=== PATIENT | male | born 1990 | race Caucasian/White ===

== ENCOUNTER 2025-01-05 23:19 | Emergency (ER) | payer OTHER, SELFPAY ==
[2025-01-05 23:28] VITALS: BP 116/74; PULSE 76; TEMP 37.1; O2SAT 96; BMI 28.8
--- NOTE | 2025-01-05 23:53 | ECG_ITS ---
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 Measurements Intervals [place] Rate: 57 P: 5 MN: 172 QRS: 75 QRSD: 92 T: 2 QT: 374 QTc: 368 Interpretive Statements 1100 Sinus rhythm 4068 Nonspecific [place] abnormality 9130 borderline ECG No previous ECG available for comparison Electronically Signed On 01-06-2025 20:12:04 EDT by LIZETH DEMPSEY M.D.
[2025-01-06 00:45] LABS: Basophils Absolute Auto 0.1 10^3/uL (0.0-0.1); Basophils Percent Auto 0.5 % (0.2-2.0); Eosinophils Absolute Auto 0.2 10^3/uL (0.0-0.7); Eosinophils Percent Auto 1.6 % (0.9-7.0); Hematocrit 42.9 % (42.0-54.0); Hemoglobin 14.7 g/dL (14.0-18.0); Immature Granulocytes Abs Auto 0.02 10^3/uL (0.00-0.03); Immature Granulocytes Pct Auto 0.2 % (0.0-0.5); Lymphocytes Absolute Auto 2.5 10^3/uL (1.2-3.8); Lymphocytes Percent Auto 26.1 % (20.5-60.0); Mean Corpuscular HGB Conc 34.3 g/dL (29.9-35.2); Mean Corpuscular Hemoglobin 30.2 pg (25.9-34.0); Mean Corpuscular Volume 88.1 fL (80.0-94.0); Mean Platelet Volume 9.7 fL (9.5-13.5); Monocytes Absolute Auto 0.7 10^3/uL (0.3-0.8); Neutrophils Absolute Auto 6.2 10^3/uL (1.4-6.5); Neutrophils Percent Auto 64.6 % (43.0-75.0); Platelet Count 273 10^3/uL (150-450); Red Blood Count 4.87 10^6/uL (4.70-6.10); Red Cell Distribution Width 12.1 % (11.0-15.0); White Blood Count 9.6 10^3/uL (4.0-11.0)
[2025-01-06 01:00] LABS: Alanine Aminotransferase 23 U/L (16-63); Albumin Globulin Ratio 0.9; Albumin Level 3.5 g/dL (3.4-5.0); Alkaline Phosphatase 49 U/L (46-116); Anion Gap 13.5; Aspartate Amino Transferase 16 U/L (15-37); BUN Creatinine Ratio 12.4; Bilirubin Total 0.5 mg/dL (0.2-1.0); Calcium 9.1 mg/dL (8.5-10.1); Carbon Dioxide 26.3 mmol/L (21.0-32.0); Chloride 103 mmol/L (98-107); Estimated GFR (African America >60 (>=60 mL/min/1.73m^2); Estimated GFR (Non-African Ame >60 (>=60 mL/min/1.73m^2); Globulin 3.7 g/dL; Glucose 102 mg/dL (74-106); Potassium 3.8 mmol/L (3.5-5.1); Salicylate <2.8 mg/dL (<=19.9); Sodium 139 mmol/L (136-145); Total Protein 7.2 g/dL (6.4-8.2)
--- NOTE | 2025-01-06 01:01 | ED_ITS ---
HPI - Psych General Chief Complaint: Psychiatric Symptoms Stated Complaint: MENTAL HEALTH ISSUE Time Seen by Provider: 01/05/25 23:42 Mode of arrival: walk-in History of Present Illness HPI Narrative: This 34-year-old male with a history of depression and anxiety with history of suicidal ideation and suicide attempts in the past who is on several psychiatric medications is brought to the emergency department by his sister. For the past 2 to 3 weeks the patient has been having increased episodes of suicidal ideation with self isolation and planning . The patient is originally from [place]. In the past he had a suicide attempt in which he jumped from a high building causing him to have a pelvic fracture and multiple other injuries. The patient states the symptoms have been present since August after Trump was elected. The patient states that since that time he has been having increasing depression and anxiety. 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 He does not verbalize an exact plan to me. He states that he feels that his family is his biggest support structure and since the election his family is split and he does not feel the support from them that he has felt in the past. Related Data Allergies Allergy/AdvReac Type Severity Reaction Status Date / Time codeine Allergy Mild itching Verified 01/05/25 23:33 Review of Systems ROS Status of ROS 10 or more systems reviewed and unremark able except as noted in history and below PFSH PFSH Social History Little interest or pleasure in doing things: several days Feeling down, depressed, or hopeless: several days Exam Narrative Exam Narrative: Vital signs and Nursing Notes reviewed: Patient is afebrile with a normal pulse, normal blood pressure, he is not hypoxic with pulse ox of 96% on room air General: Awake, alert, oriented, flat, depressed affect, somewhat tearful at times, no respiratory distress HEENT: Normocephalic atraumatic, mucous membranes are moist and pink, eyes are clear, normal conjunctiva, vision is grossly intact, posterior pharynx is normal in appearance. Chest: Lungs are clear to auscultation with good air entry, there is no wheezing rhonchi or rales appreciated no accessory muscle use, patient is speaking in complete sentences-no chest wall tenderness to palpation CVS: Regular rate and rhythm S1-S2, no murmurs rubs or gallops, pulses are brisk and equal bilaterally ABD: Soft, nondistended, nontender, no rebound guarding or rigidity, bowel sounds are normal, no pulsatile masses appreciated Extremities: Moving all extremities, no lower extremity tenderness or swelling noted, negative Homans' sign, pulses are brisk and equal bilaterally Skin: Normal in appearance without rash,pallor, petechiae or purpura-multiple tattoos Neuro: No focal deficits Psych: Ongoing depression, anxiety with suicidal ideation, increased sleeping and decreased appetite Constitutional Vital Signs, click to edit/add: Last Vital Signs Temp 98.7 F 01/05/25 23:28 Pulse 76 01/05/25 23:28 Resp 18 01/05/25 23:28 BP 116/74 01/05/25 23:28 Pulse Ox 96 01/05/25 23:28 O2 Del Method Room Air 01/05/25 23:28 Course Vital Signs Vital signs: Vital Signs Temperature 98.7 F 01/05/25 23:28 Pulse Rate 76 01/05/25 23:28 Respiratory Rate 18 01/05/25 23:28 Blood Pressure 116/74 01/05/25 23:28 Pulse Oximetry 96 01/05/25 23:28 Oxygen Delivery Method Room Air 01/05/25 23:28 Temperature 98.7 F 01/05/25 23:28 Pulse Rate 76 01/05/25 23:28 Respiratory Rate 18 01/05/25 23:28 Blood Pressure 116/74 01/05/25 23:28 Pulse Oximetry 96 01/05/25 23:28 Oxygen Delivery Method Room Air 01/05/25 23:28 MDM - Psych MDM Narrative Medical decision making narrative: This 34-year-old male with a history of depression and anxiety is brought to emergency department by his sister for evaluation of increasing symptoms of depression and anxiety as well as suicidal ideation that has been increasing for the past several weeks. He does have a history of suicidal attempt in the past when he jumped off a tall building and was severely injured. He is currently under the treatment of a psychiatrist that he was seeing before moving to [place] from [place] and a local therapist. He maintains medication compliance. Despite this he is having increased suicidal ideation. He has not verbalize an actual plan to me. He is otherwise forthcoming. He was seen and evaluated by P. Medical clearance was ordered. He has a normal EKG. He has a normal white count and hemoglobin. Electrolytes are normal. He is negative for aspirin, Tylenol and alcohol. Drug tox is pending at this time. He has been accepted for transfer to [address] Urine tox is positive for marijuana and benzodiazepines. He has remained is calm, cooperative and stable while in the emergency department and is agreeable to voluntary admission to [facility]. Lab Data Attestation: I reviewed the patient's lab results. Labs: Lab Results 01/06/25 01/06/25 Range/Units 00:38 03:10 WBC 9.6 (4.0-11.0) 10^3/uL RBC 4.87 (4.70-6.10) 10^6/uL Hgb 14.7 (14.0-18.0) g/dL Hct 42.9 (42.0-54.0) % MCV 88.1 (80.0-94.0) fL MCH 30.2 (25.9-34.0) pg MCHC 34.3 (29.9-35.2) g/dL RDW 12.1 (11.0-15.0) % Plt Count 273 (150-450) 10^3/uL MPV 9.7 (9.5-13.5) fL Neut % (Auto) 64.6 (43.0-75.0) % Lymph % (Auto) 26.1 (20.5-60.0) % [place] % (Auto) 7.0 (1.7-12.0) % Eos % (Auto) 1.6 (0.9-7.0) % Baso % (Auto) 0.5 (0.2-2.0) % Neut # (Auto) 6.2 (1.4-6.5) 10^3/uL Lymph # (Auto) 2.5 (1.2-3.8) 10^3/uL [place] # (Auto) 0.7 (0.3-0.8) 10^3/uL Eos # (Auto) 0.2 (0.0-0.7) 10^3/uL Baso # (Auto) 0.1 (0.0-0.1) 10^3/uL Abs Immat Gran (auto) 0.02 (0.00-0.03) 10^3/uL Imm/Tot Granulo (auto) 0.2 (0.0-0.5) % Sodium 139 (136-145) mmol/L Potassium 3.8 (3.5-5.1) mmol/L Chloride 103 (98-107) mmol/L Carbon Dioxide 26.3 (21.0-32.0) mmol/L Anion Gap 13.5 BUN 13.0 (7.0-18.0) mg/dL Creatinine 1.05 (0.70-1.30) mg/dL Est GFR ( Amer) >60 (>=60 mL/min/1.73m^2) Est GFR (Non-Af Amer) >60 (>=60 mL/min/1.73m^2) BUN/Creatinine Ratio 12.4 Glucose 102 (74-106) mg/dL Calcium 9.1 (8.5-10.1) mg/dL Total Bilirubin 0.5 (0.2-1.0) mg/dL AST 16 (15-37) U/L ALT 23 (16-63) U/L Alkaline Phosphatase 49 (46-116) U/L Total Protein 7.2 (6.4-8.2) g/dL Albumin 3.5 (3.4-5.0) g/dL Globulin 3.7 g/dL Albumin/Globulin Ratio 0.9 Salicylates <2.8 (<=19.9) mg/dL Urine Opiates Screen Negative (NEGATIVE) Ur Buprenorphine Scrn Negative (NEGATIVE) Ur Oxycodone Screen Negative (NEGATIVE) Urine Methadone Screen Negative (NEGATIVE) Acetaminophen <2.0 L (10.0-30.0) ug/mL Ur Barbiturates Screen Negative (NEGATIVE) U Tricyclic Antidepress Negative (NEGATIVE) Ur Phencyclidine Scrn Negative (NEGATIVE) Ur Amphetamines Screen Negative (NEGATIVE) U Methamphetamines Scrn Negative (NEGATIVE) U Benzodiazepines Scrn Positive A (NEGATIVE) Urine Cocaine Screen Negative (NEGATIVE) U Cannabinoids Screen Positive A (NEGATIVE) Ethanol Quant <3 mg/dL ECG Data Attestation: I personally reviewed and interpreted this ECG as follows: (Sinus rhythm at 57 bpm, normal axis, normal intervals, no acute ST segment elevation or T wave inversion) Discharge Plan Discharge Chief Complaint: Psychiatric Symptoms Clinical Impression: Suicidal ideation, Depression Patient Disposition: [facility] Time of Disposition Decision: 02:12 Discharge Location: [facility]
[2025-01-06 01:04] LABS: Acetaminophen <2.0 ug/mL (10.0-30.0); Ethanol <3 mg/dL
[2025-01-06 03:41] LABS: Benzodiazepines Screen Urine POSITIVE (NEGATIVE); Cannabinoid Screen Urine POSITIVE (NEGATIVE); Cocaine Screen Urine NEGATIVE (NEGATIVE); Methamphetamines Screen Urine NEGATIVE (NEGATIVE); Opiate Screen Urine NEGATIVE (NEGATIVE); Phencyclidine Screen Urine NEGATIVE (NEGATIVE)
[2025-01-06 03:42] LABS: Amphetamine Screen Urine NEGATIVE (NEGATIVE); Barbiturates Screen Urine NEGATIVE (NEGATIVE); Buprenorphine Screen Urine NEGATIVE (NEGATIVE); Methadone Screen Urine NEGATIVE (NEGATIVE); Oxycodone Screen Urine NEGATIVE (NEGATIVE); Tricyclic Antidepressant Urine NEGATIVE (NEGATIVE)
[2025-01-06 03:50] VITALS: BP 98/60; PULSE 66; TEMP 36.4; O2SAT 96
[2025-01-06 03:57] VITALS: BP 98/60; PULSE 66; TEMP 36.4; O2SAT 96
--- NOTE | 2025-01-06 04:05 | PC.NURSE ---
I called [facility] spoke with Darlyn BARRETT, I gave her this patient's report. 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
== END 2025-01-06 04:05 ==
PROVIDERS: Emergency Provider Emergency Medicine
DX: R45.851 Suicidal ideations (principal); F32.A Depression, unspecified; F41.9 Anxiety disorder, unspecified; Z91.51 Personal history of suicidal behavior
CPT/HCPCS: 36415; 80053; 80179; 80307; 80320; 80329; 85025; 93005; 99285